=== PATIENT | male | born 1995 | race Caucasian/White ===

== ENCOUNTER 2017-05-09 22:57 | Emergency (ER) | payer OTHER ==
[~2017-05-09] VITALS: Ht 193 cm; Wt 136.1 kg
--- NOTE | 2017-05-09 22:57 | NUR ---
BIB [facility] TO ER OF1
[2017-05-09 23:03] VITALS: BP 156/75
--- NOTE | 2017-05-09 23:25 | NUR ---
21Y/M PT. BIB [facility] FOR PREBOOK. PT. ETOH, RAN AWAY FROM [facility] THEN FELL. AAO X4, AMBULATORY WITH STEADY GAIT. SKIN WARM AND DRY, ABRASION TO BOTH KNEES AND FORHEAD. RESPIRATIONS ROOM AIR, EVEN AND UNLABORED. C/O PAIN 05/10. VSS, TACHYCARDIA 131, ER MADE AWARE OF PT. STATUS.
--- NOTE | 2017-05-09 23:35 | NUR ---
Patient being evaluated by physician.
[2017-05-09] MEDS ORDERED: ACETAMINOPHEN EXTRA STRENGTH 500 MG TAB PO ONE (23:45)
[2017-05-09] MEDS ORDERED: BACITRACIN OINT 500 UNITS/GM PKT TP ONE (23:45)
--- NOTE | 2017-05-10 00:10 | NUR ---
Patient discharged with v/s stable. Written and verbal after care instructions given and explained. Patient verbalized understanding. Ambulatory with steady gait. All questions addressed prior to discharge. Advised to follow up with PMD. P CUSTODY
[2017-05-10 00:44] VITALS: BP 130/80
== END 2017-05-10 00:10 ==
LOC: MED 22:57
DX: S41.032A Puncture wound without foreign body of left shoulder, initial encounter (principal); S40.011A Contusion of right shoulder, initial encounter; S80.212A Abrasion, left knee, initial encounter; S80.211A Abrasion, right knee, initial encounter; Z79.84 Long term (current) use of oral hypoglycemic drugs; Z79.899 Other long term (current) drug therapy; W21.89XA Striking against or struck by other sports equipment, initial encounter; Y93.89 Activity, other specified; Y92.148 Other place in prison as the place of occurrence of the external cause; Y99.8 Other external cause status
CPT/HCPCS: 71010; 73020; 99284